=== PATIENT | female | born 1985 | race Two or more races ===

== ENCOUNTER 2023-04-09 15:39 | Outpatient (CLI) | payer OTHER | END 2023-04-09 16:55 | disposition home or self-care (01) | LOC: NST 15:39 | PROVIDERS: ATTEND Obstetrics & Gynecology Gynecology | DX: Z34.83 Encounter for supervision of other normal pregnancy, third trimester (principal) ==

== ENCOUNTER 2023-04-12 09:40 | Outpatient (CLI) | payer OTHER | END 2023-04-12 09:58 | disposition home or self-care (01) | LOC: NST 09:40 | PROVIDERS: ATTEND Obstetrics & Gynecology | DX: Z34.83 Encounter for supervision of other normal pregnancy, third trimester (principal) ==

== ENCOUNTER 2024-05-22 13:27 | Outpatient (CLI) | payer OTHER ==
[~2024-05-22 13:27] MED LIST: PRENATAL + DHA1 EAC1 PO
== END 2024-05-22 13:29 | disposition home or self-care (01) ==
LOC: PRENATAL 13:27
PROVIDERS: ATTEND Obstetrics & Gynecology Maternal & Fetal Medicine
DX: O26.849 Uterine size-date discrepancy, unspecified trimester (principal); Z36.0 Encounter for antenatal screening for chromosomal anomalies; Z14.8 Genetic carrier of other disease; O09.529 Supervision of elderly multigravida, unspecified trimester; Z3A.16 16 weeks gestation of pregnancy

== ENCOUNTER 2024-06-19 08:09 | Outpatient (CLI) | payer OTHER | END 2024-06-19 08:10 | disposition home or self-care (01) | LOC: PRENATAL 08:09 | PROVIDERS: ATTEND Obstetrics & Gynecology Maternal & Fetal Medicine | DX: O44.00 Complete placenta previa NOS or without hemorrhage, unspecified trimester (principal); O09.529 Supervision of elderly multigravida, unspecified trimester; Z3A.20 20 weeks gestation of pregnancy ==

== ENCOUNTER → 2024-09-25 14:58 | Outpatient (CLI) | payer OTHER | END | disposition home or self-care (01) | LOC: PRENATAL 14:58 | PROVIDERS: ATTEND Obstetrics & Gynecology Maternal & Fetal Medicine | DX: O26.849 Uterine size-date discrepancy, unspecified trimester (principal); O36.8199 Decreased fetal movements, unspecified trimester, other fetus; O09.529 Supervision of elderly multigravida, unspecified trimester; Z3A.35 35 weeks gestation of pregnancy ==